=== PATIENT | female | born 1960 | race Caucasian/White ===

== ENCOUNTER 2024-05-03 11:55 | Emergency (ER) | payer SELFPAY ==
[2024-05-03 12:02] VITALS: BP 123/72; PULSE 84; RESP 16; TEMP 36.6; O2SAT 100; BMI 19.7
--- NOTE | 2024-05-03 12:05 | XRR_ITS ---
PROCEDURE INFORMATION: Exam: XR Right Ankle Exam date and time: 05/03/2024 12:20 PM Age: 63 years old Clinical indication: Injury or trauma; Fall TECHNIQUE: Imaging protocol: Radiologic exam of the right ankle. Views: 3 or more views. COMPARISON: No relevant prior studies available. FINDINGS: Bones/joints: Oblique fracture involving the distal fibular metadiaphysis with approximately 5.5 mm lateral displacement of the dominant distal fracture fragment. Linear ossific fragment adjacent to the medial malleolus suspicious for acute fracture. A corticated ossicle adjacent to the medial malleolus likely reflects remote trauma. Mild widening of the lateral ankle mortise. The visualized Achilles tendon is grossly normal in morphology. Soft tissues: Soft tissue swelling about the ankle. XR/XR ankle RT min 3V* [id number] IMPRESSION: 1. Oblique fracture involving the distal fibular metadiaphysis with approximately 5.5 mm lateral displacement of the dominant distal fracture fragment. 2. Linear ossific fragment adjacent to the medial malleolus suspicious for acute fracture. 3. Mild widening of the lateral ankle mortise. 4. Soft tissue swelling about the ankle.
--- NOTE | 2024-05-03 12:05 | XRR_ITS ---
PROCEDURE INFORMATION: Exam: XR Right Foot Exam date and time: 05/03/2024 12:23 PM Age: 63 years old Clinical indication: Injury or trauma; Fall TECHNIQUE: Imaging protocol: Radiologic exam of the right foot. Views: 3 or more views. COMPARISON: CR (LOW EXM, ) 05/03/2024 12:20 PM FINDINGS: Bones/joints: Mild hallux valgus deformity with bunion. The visualized Achilles tendon is grossly normal in morphology. Bimalleolar fractures are better seen on radiographs of the ankle. Soft tissues: Dorsal soft tissue swelling involving the foot. XR/XR foot RT min 3V* [id number] IMPRESSION: 1. Bimalleolar fractures are better seen on radiographs of the ankle. 2. Dorsal soft tissue swelling involving the foot. 3. Mild hallux valgus deformity with bunion.
--- NOTE | 2024-05-03 12:07 | W.ED.EXTPRO ---
HPI - Extremity Problem General: Chief complaint: Extremity Injury, Lower Stated complaint: Right ankle and foot swollen Time Seen by Provider: 05/03/24 11:56 Source: patient Mode of arrival: ambulatory Limitations: no limitations History of Present Illness: 63-year-old female states that she had tripped yesterday as her dog and got his chain caught around her right ankle states she twisted her right ankle has had severe pain and swelling in the lateral portion of the right ankle since then. States she not able to bear any weight she rates her pain a 7 out of 10 denies any other injuries denies any pain in her knee Associated symptoms: Deny chest pain, fever(s) or rash Related Data Previous Rx's Medication Instructions Recorded hydrocodone 5 mg-acetaminophen 325 1 tab PO Q6H PRN pain #14 tabs 05/03/24 mg tablet Allergies Allergy/AdvReac Type Severity Reaction Status Date / Time No Known Allergies Allergy Verified 05/03/24 12:04 Review of Systems Const: Denies: fever(s), chills, body aches or change in appetite ENMT: Denies: throat pain or dental pain Card: Denies: chest pain Resp: Denies: dyspnea GI: Denies: abdominal pain, nausea, vomiting or diarrhea Musc: Reports: extremity pain; Denies: neck pain or back pain Skin/Breast: Denies: rash Neuro: Denies: headache(s) Physical Exam Const: COMMON NORMALS: no acute distress, patient oriented x3 and healthy appearing HENMT: COMMON NORMALS: normocephalic and atraumatic HEAD & SCALP: normocephalic and atraumatic Neck/C-Spine: COMMON NORMALS: full ROM and supple Chest: COMMONS NORMALS: normal inspection of the chest Resp: COMMON NORMALS: normal respiratory effort Extremity: NARRATIVE EXTREMITY EXAM: tenderness and swelling over right lateral ankle Neuro: COMMON NORMALS: patient oriented x3, moves all extremities and no focal motor deficits Psych: COMMON NORMALS: mental status grossly normal, Normal thought process present and cooperative THOUGHT PROCESS: Normal thought process present Skin: COMMON NORMALS: no rashes or lesions noted and no wounds GENERAL SKIN EXAM: no rashes or lesions noted Course Vital Signs: Vital signs: Vital Signs Temperature 98 F 05/03/24 12:02 Pulse Rate 76 05/03/24 12:30 Respiratory Rate 16 05/03/24 12:02 Blood Pressure 136/82 05/03/24 12:30 Pulse Oximetry 100 05/03/24 12:30 Oxygen Delivery Me thod Room Air 05/03/24 12:30 MDM - Extremity (Nontraumatic) Medical Decision Making Patient presents here with a right ankle fracture from a fall she has no other injuries noted we will prescribe her pain meds she is to follow-up with podiatry did place her in a splint she is to be nonweightbearing she understands agrees to plan Medical Records I reviewed the patient's medical records. All radiology interpretation(s) finalized by discharge Discharge Plan Discharge Patient Disposition: Home Clinical Impression: Ankle fracture Qualifiers: Encounter type: initial encounter Fracture type: closed Laterality: right Qualified Code(s): S82.891A - Other fracture of right lower leg, initial encounter for closed fracture Condition: Stable Prescriptions: New hydrocodone-acetaminophen 5-325 mg tablet 1 tab PO Q6H PRN (Reason: pain) Qty: 14 0RF Discharge Orders: Discharge ED (Routine); Ordered 05/03/24 Ordered By: Linnea Elliott Referrals: Ousmane Lovell DPM [Physician] - 1-3 days Discharge Diet: Advance as tolerated Discharge Activity: Limit activity as instructed and Use walker/crutches as instructed Patient Instructions: Ankle Fracture (ED), Opioid Safety, Pain Management Coding Level of Care Code ED [facility] Specialist for Therese Carr
[2024-05-03] MEDS: HYDROcodone-acetaminophen 5-325 mg Tablet 1 TAB PO (12:29)
[2024-05-03 12:30] VITALS: BP 136/82; PULSE 76; O2SAT 100
[2024-05-03 13:12] VITALS: BP 136/82; PULSE 76; RESP 16; TEMP 36.6; O2SAT 100
--- NOTE | 2024-05-04 09:23 | DCPLANNER ---
message podiatry for an er f/u
== END 2024-05-03 13:17 | disposition home or self-care (01) ==
PROVIDERS: Emergency Provider Emergency Medicine
DX: S82.431A Displaced oblique fracture of shaft of right fibula, initial encounter for closed fracture (principal); X50.1XXA Overexertion from prolonged static or awkward postures, initial encounter
CPT/HCPCS: 73610; 73630; 99283; E0114